=== PATIENT | male | born 1945 | race Caucasian/White ===

== ENCOUNTER 2019-12-31 09:39 | Day surgery (SDC) | payer MEDICARE, OTHER ==
[2019-12-28 13:50] VITALS: BMI 26.5
[2019-12-31] MEDS ORDERED: HYDROmorphone 0.5 MG/0.5 ML SYRINGE IVP PRN (09:41)
[2019-12-31] MEDS ORDERED: ONDANSETRON 4 MG/2 ML VIAL IVP ONE (09:41)
[2019-12-31] MEDS ORDERED: LACTATED RINGERS 1,000 ML IV SCH (09:41)
[2019-12-31] MEDS ORDERED: DEXAMETHASONE SOD PHOSPHATE 10 MG/ML 1 ML VIAL IV ONE (09:41)
[2019-12-31 10:23] VITALS: RESP 16; TEMP 98.1
[2019-12-31] MEDS ORDERED: diphenhydrAMINE 50 MG/ML 1 ML VIAL ONE (13:32)
[2019-12-31] MEDS ORDERED: PROPOFOL 10 MG/ML 20 ML VIAL IV ONE (13:32)
[2019-12-31] MEDS ORDERED: MIDAZOLAM 2 MG/2 ML VIAL ONE (13:32)
[2019-12-31] MEDS ORDERED: fentaNYL (PF) 50 MCG/ML 2 ML AMP ONE (13:32)
[2019-12-31 17:00] VITALS: BP 178/86; PULSE 61
--- NOTE | 2020-01-02 21:13 | P.OP ---
Date of Procedure: 12/31/19 Preoperative Diagnosis: 1. Traumatic laceration of left thumb flexor pollicis longus (FPL) tendon 2. Traumatic left thumb wound secondary to contact with a powersaw Postoperative Diagnosis: 1. Complete laceration of left thumb flexor pollicis longus (FPL) tendon 2. Complete laceration of left thumb ulnar digital artery and nerve 3. Traumatic arthrotomy with open intra-articular left thumb proximal phalanx head fracture 4. Traumatic left thumb wound secondary to contact with a powersaw Procedure(s) Performed: 1. Irrigation and sharp excisional debridement of left thumb open proximal phalanx fracture and traumatic interphalangeal (IP) joint arthrotomy 2. Primary repair of left thumb flexor pollicis longus (FPL) tendon (Zone 1-2) 3. Primary repair of left thumb ulnar digital nerve 4. Left thumb wound closure with adjacent tissue transfer (~4 cm2) Anesthesia: MAC, local Surgeon: Dex Leos Estimated Blood Loss (ml): 5 Condition: stable Disposition: PACU Indications for Procedure: The patient is a pleasant 74-year-old male who sustained a traumatic laceration to his left thumb after contact with a circular saw. He was diagnosed with an FPL rupture. Treatment options (and associated risks and benefits) were discussed in the office: exploration and tendon repair were recommended. The patient expressed understanding and elected operative treatment. In preop, additional questions were answered and the patient wished to proceed with surgery as planned. Consent forms were signed. The surgical site was confirmed and marked preoperatively. Description of Procedure: After consent was obtained, lidocaine with epinephrine was injected around the planned incision/surgical site in preop, using aseptic technique. After an appropriate interval of time, the patient was brought to the OR and positioned supine with the operative limb on a hand table. Anesthesia was administered uneventfully. The left upper extremity was then prepped and draped in standard, sterile fashion. A time-out was performed, confirming patient identifiers, the operative side, the site and the procedure to be performed: all team members expressed agreement. No tourniquet was utilized. Loupe magnification was utilized throughout the case for optimum visualization. The traumatic wound was extended proximally in a volar Arvind fashion. The central skin over the pulp was avulsed and non-viable. This was sharply resected and the subcutaneous tissues were bluntly divided to expose the flexor sheath. No gross purulence or foreign matter was identified. The saw had created a traumatic arthrotomy, cutting through (and obliterating) a portion of the volar-radial condyle of the proximal phalanx head. The majority of the opposing articular surfaces appeared intact and uninjured. Small, comminuted bone fragments in the adjacent soft tissues were removed. The FPL tendon was completely transected at the proximal edge of the IP joint. The insertion was intact. The proximal stump was retracted and not immediately visualized. The flexor sheath was opened with a hemostat. The thumb and wrist were flexed. A curved tendon grasper was inserted into the sheath and the proximal stump was pulled distally, having only retracted 3-4 cm. This was pinned in placed with a 25-gauge needle inserted through the oblique sumit. The saw cut both ends fairly neatly, without significant fraying. Both neurovascular bundles were identified. The traumatic wound ended just superficial to the radial bundle, which appeared uninjured. The ulnar bundle was completely transected. The artery and nerve on both sides of the wound were identified and dissected free. There was a segmental defect in the artery and repair was not attempted, as the tip of the thumb showed good preop perfusion. The nerve was transected immediately proximal to the trifurcation. The distal branches were quite traumatized but appeared intact. A sharp excisional debridement was performed, utilizing scalpels, scissors, curettes and rongeurs to resect devitalized/unhealthy-appearing tissues: this included skin, subcutaneous tissue, fat and bone. Resection proceeded until healthy-appearing tissues with bleeding edges were obtained. The total area of debridement measured ~3 cm x 4 cm. Hematoma and fibrous tissue were removed with curettes and rongeurs. Traumatized, nonviable tissue was sharply resected with a scalpel at the periphery of the wound and around the joint capsule. The bony injury at the head of the proximal phalanx was debrided with a curette and the sharp edges were resected back to smooth margins with a rongeur. The joint and wound were copiously irrigated with normal saline and a bulb syringe. The surrounding soft tissues were mechanically debrided with curettes and rongeurs. Once adequately debrided, attention was turned to the tendon repair. A 4-strand core suture repair was performed with 3-0 FiberWire using a cruciate stitch. An additional horizontal mattress stitch was placed to create a total 6- strand core repair. This was reinforced with a running 5-0 Nylon epitendinous stitch. Good approximation of the tendon ends was achieved without bunching. The repair showed no gapping with passive motion of the joint. Attention was then turned to the digital nerve. Using loupe magnification and microsurgical instruments, the nerve ends were mobilized to facilitate a tension-free repair. The traumatized ends of the nerve were sharply revised. A direct, epineurial repair was performed using interrupted 9-0 nylon sutures. Upon completion, there was no gapping at the repair site. To address the dermal defect and paucity of pulp tissue over the repair site, the volar Arvind flap over the proximal phalanx was mobilized and rotated to fill the void and sutured in place with interrupted 5-0 Nylon sutures. The remaining defect was closed in a [id number] fashion. The wound closed completely with no exposed tendon or neurovascular structures. Good hemostasis was maintained throughout the case without the need for a tourniquet. A thin layer of sterile surgical jelly was applied over the suture line and adjacent traumatized tissue. A sterile dressing was applied, followed by a dorsal blocking plaster splint with the wrist and thumb MP joint in about 40 of flexion. All sponge, needle and instrument counts were correct at the end of the case. The patient tolerated the procedure well and was taken to the recovery room in stable condition.
== END 2019-12-31 17:18 | disposition home or self-care (01) ==
LOC: OR 09:39
PROVIDERS: ATTEND Orthopaedic Surgery
DX: S62.512B Displaced fracture of proximal phalanx of left thumb, initial encounter for open fracture (principal); S66.022A Laceration of long flexor muscle, fascia and tendon of left thumb at wrist and hand level, initial encounter; S64.32XA Injury of digital nerve of left thumb, initial encounter; Z98.890 Other specified postprocedural states; Z79.1 Long term (current) use of non-steroidal anti-inflammatories (NSAID); Z79.899 Other long term (current) drug therapy; Z97.3 Presence of spectacles and contact lenses; Z87.891 Personal history of nicotine dependence; W31.2XXA Contact with powered woodworking and forming machines, initial encounter
CPT/HCPCS: 87635; 11012; 26350; 64831; 14040; J2250; J1200; J1100; J0690; J2405; J3010; J2704